=== PATIENT | female | born 1940 | race Two or more races ===

== ENCOUNTER 2023-01-20 17:25 | Emergency (ER) | payer OTHER ==
[~2023-01-20] VITALS: Ht 152.4 cm; Wt 57.2 kg
[2023-01-20] MEDS ORDERED: AMLODIPINE-OLM1 EAC2 (17:45)
[2023-01-20] MEDS ORDERED: TRADJENTA5 MG PO (17:45)
[2023-01-20] MEDS ORDERED: SIMVASTATIN80 MG (17:45)
[2023-01-20] MEDS ORDERED: HORIZANT300 MG (17:46)
== END 2023-01-20 20:00 | disposition home or self-care (01) ==
LOC: ER 17:25
DX: N39.0 Urinary tract infection, site not specified (principal); R50.9 Fever, unspecified; Z88.0 Allergy status to penicillin; Z20.822 Contact with and (suspected) exposure to COVID-19